=== PATIENT | female | born 1980 | race Caucasian/White ===

== ENCOUNTER → 2020-09-20 | Outpatient (CLI) | payer MEDICARE, MEDICAID, BC ==
--- NOTE | 2020-09-24 00:39 | ECWPNPC ---
PATIENT NAME: NANCY MARS : 1980 GENDER: FEMALE VISIT DATE: 09/20/2020 DISCHARGE DATE: 09/20/20 1148 VISIT LOCKED DATE TIME: PHYSICIAN: ALVERTO ALICEA RESOURCE: ALVERTO ALICEA REASON FOR APPOINTMENT 1. CHRONIC HEADACHE HISTORY OF PRESENT ILLNESS GENERAL: 39-YEAR-OLD FEMALE BEING REFERRED FOR CHRONIC HEADACHES BY [facility] ,[facility], [facility]. REPORTS LONG HISTORY OF MIGRAINE HEADACHE.-HISTORY OF CEREBRAL ANEURYSM REPAIR 2 YEARS AGO. THIS WAS PICKED UP BY MRI OF THE BRAIN DUE TO BLACKOUT EPISODES. CONTINUES WITH BLACKOUT EPISODES. HAS ANOTHER CEREBRAL ANEURYSM THAT THEY ARE FOLLOWING YEARLY. HISTORY OF SEVERE ANXIETY AND IS ON DISABILITY FOR THIS REASON. REPORTS APPROXIMATELY 8 MIGRAINE HEADACHE DAYS IN A 30 DAY TIME FRAME. REPORTS MIGRAINE HEADACHE FOR 5 DAYS DURING HER MENSES EVERY MONTH. FINDS IBUPROFEN 800 MG AND FIORICET HELPFUL. HISTORY OF MULTIPLE MEDICATION INTOLERANCES. HISTORY OF MUSCLE SPASM PAIN IN NECK AND UPPER BACK. HAS ATTENDED PHYSICAL THERAPY IN THE PAST THAT WAS HELPFUL DURING TREATMENT. REVIEWED MRI OF THE BRAIN DONE IN 2019 WHICH WAS BENIGN. BRIEFLY DISCUSSED PROCEDURES WE ARE ABLE TO DO HERE TO INCLUDE TRIGGER POINT INJECTIONS, CERVICAL FACET BLOCKS AND OTHER INTERVENTIONAL TREATMENTS. SHE IS NOT A CANDIDATE FOR BOTOX. PATIENT STATES SHE IS NEEDLE PHOBIC. STATES THAT SHE HAS SEVERE ANXIETY AND WOULD LIKE TO AVOID INJECTIONS IF POSSIBLE. SHE WOULD LIKE TO TRY MEDICATIONS. SHE IS ON MULTIPLE MEDICATIONS CURRENTLY. I DID OFFER TO TRY A FEW MUSCLE RELAXANTS TO SEE IF THEY WILL GIVE HER RELIEF INSTEAD OF CYCLOBENZAPRINE. PATIENT WOULD LIKE TO TRY THIS. - -. FALL RISK SCREENING: SCREENING :NO FALLS REPORTED IN THE LAST YEAR PAIN SCREENING: PATIENT HAS A COMPLAINT OF ACUTE OR CHRONIC PAIN :YES LOCATION OF PAIN:HEAD INTENSITY OF PAIN (SCALE OF 1 TO 10):3 WHAT DOES YOUR PAIN FEEL LIKE:STABBING, THROBBING DURATION:CONTINOUS, CONSTANT, ALL DAY PAIN IS INCREASED BY:OTHERS BEANDING OVER AND LIGHT PAIN IS DECREASED BY:USE OF PAIN MEDICATIONS TYLENOL NURSING NOTE: - - -. PAIN CENTER INTAKE QUESTIONS: DO YOU HAVE A HISTORY OF MRSA? :NO DO YOU TAKE A BLOOD THINNERS? :YES TYLENOL, IBUPROPHEN DO YOU HAVE ANY BLEEDING DISORDERS? :NO ANY NEW NUMBNESS OR WEAKNESS IN YOUR LEGS OR ARMS? :NO ANY PACEMAKER,DEFIBRILLATOR, OR DORSAL COLUMN STIMULATOR? :NO DO YOU HAVE ANY RASHES OR OPEN SORES? :NO ARE YOU ALLERGIC TO IV DYE? :NO ARE YOU DIABETIC? :NO ANY NEW PROBLEMS WITH YOUR MEDICATIONS? :NO HAVE YOU RECEIVED A VACCINE IN THE PAST 30 DAYS? :NO DO YOU PLAN TO RECEIVE A VACCINE IN THE NEXT 21 DAYS? :NO DO YOU NEED ANY PRESCRIPTION? :NO DO YOU TAKE ANY IMMUNOSUPPRESSIVE MEDICATIONS? :NO CURRENT MEDICATIONS TAKING ZYPREXA 7.5 MG TABLET 1 TABLET ORALLY ONCE A DAY TAKING MELATONIN 10 MG TABLET 1 CAPSULE AT BEDTIME NEEDED ORALLY ONCE A DAY TAKING FREESTYLE LITE TEST - STRIP DIRECTED IN VITRO TAKING LANCETS - MISCELLANEOUS DIRECTED TAKING GABAPENTIN 100 MG CAPSULE 1 CAPSULE ORALLY TWICE DAILY TAKING ASPIRIN 81 MG TABLET DELAYED RELEASE 1 TABLET ORALLY ONCE A DAY TAKING ZYRTEC ALLERGY 10 MG TABLET 1 TABLET ORALLY ONCE A DAY TAKING SYMBICORT 80-4.5 MCG/ACT AEROSOL 2 PUFFS INHALATION ONCE A DAY TAKING IMITREX 25 MG TABLET 1 TABLET AT LEAST 2 HOURS BETWEEN DOSES NEEDED ORALLY TWICE A DAY TAKING FLEXERIL 10 MG TABLET 1 TABLET AT BEDTIME NEEDED ORALLY THREE TIMES DAILY NEEDED TAKING VENTOLIN HFA 108 (90 BASE) MCG/ACT AEROSOL SOLUTION 1 PUFF NEEDED INHALATION EVERY 4 HRS TAKING SIMVASTATIN 10 MG TABLET 1 TABLET IN THE EVENING ORALLY ONCE A DAY TAKING LISINOPRIL 5 MG TABLET 1 TABLET ORALLY ONCE A DAY TAKING TOPIRAMATE 25 MG TABLET 1 TABLET ORALLY ONCE A DAY TAKING BENTYL 20 MG TABLET 1 TABLET ORALLY FOUR TIMES DAILY NEEDED TAKING MIRTAZAPINE 45 MG TABLET 1 TABLET AT BEDTIME ORALLY ONCE A DAY TAKING OLANZAPINE 10 MG TABLET 1 TABLET ORALLY ONCE A DAY TAKING CLONAZEPAM 0.5 MG TABLET 1 TABLET AT BEDTIME ORALLY ONCE A DAY TAKING CLONAZEPAM 1 MG TABLET 1 TABLET ORALLY ONCE A DAY TAKING OMEPRAZOLE 40 MG CAPSULE DELAYED RELEASE 1 CAPSULE 30 MINUTES BEFORE MORNING MEAL ORALLY ONCE A DAY TAKING DOK 100 MG CAPSULE 1 CAPSULE NEEDED ORALLY ONCE A DAY TAKING ZINC 50 MG TABLET 1 TABLET ORALLY ONCE A DAY TAKING PROMETHAZINE HCL 25 MG/ML SOLUTION 1 ML NEEDED INJECTION EVERY 6 HRS TAKING ALBUTEROL 1 TAB ORAL TAKING SYMBICORT 80-4.5 MCG/ACT AEROSOL 2 PUFFS INHALATION ONCE A DAY TAKING BENTYL 20 MG TABLET DIRECTED ORALLY TAKING TYLENOL 1 TAB ORAL TAKING IBUPROFEN 1 TAB ORAL NOT-TAKING REMERON SOLTAB 45 MG TABLET DISINTEGRATING 1 TABLET ON THE TONGUE AND ALLOW TO DISSOLVE AT BEDTIME ORALLY ONCE A DAY NOT-TAKING VITAMIN C 1000 MG TABLET 1 TABLET ORALLY ONCE A DAY NOT-TAKING CYCLOBENZAPRINE HCL 10 MG TABLET 1 TABLET AT BEDTIME NEEDED ORALLY THREE TIMES DAILY NEEDED NOT-TAKING FERROUS SULFATE 325 (65 FE) MG TABLET 1 TABLET ORALLY ONCE A DAY NOT-TAKING DULCOLAX 5 MG TABLET DELAYED RELEASE 1 TABLET NEEDED ORALLY ONCE A DAY NOT-TAKING DULCOLAX 10 MG SUPPOSITORY 1 SUPPOSITORY NEEDED RECTAL ONCE A DAY NOT-TAKING DSS 100 PLUS 30-100 MG CAPSULE 2 CAPSULE ORALLY THREE TIMES DAILY NEEDED NOT-TAKING FLEXERIL 10 MG 30 10 MG TABLETS ONE TABLET ORALLY EVERY 8 HOURS PRN PAIN NOT-TAKING LISINOPRIL 5 MG TABLET 1 TABLET ORALLY ONCE A DAY UNKNOWN OMEPRAZOLE 40 MG CAPSULE DELAYED RELEASE 1 CAPSULE ORALLY ONCE A DAY UNKNOWN DOCQLACE 100 MG CAPSULE 1 CAPSULE NEEDED ORALLY ONCE A DAY UNKNOWN XANAX XR 0.5 MG TABLET EXTENDED RELEASE 24 HOUR 1 TABLET ORALLY ONCE A DAY PRN UNKNOWN CLONAZEPAM 0.5 MG TABLET 1 TABLET AT BEDTIME ORALLY BID UNKNOWN BENTYL 20 MG TABLET 1 TABLET ORALLY FOUR TIMES A DAY UNKNOWN CIPRO 500 MG TABLET 1 TABLET ORALLY EVERY 12 HRS UNKNOWN PROMETHAZINE HCL 25 MG TABLET 1 TABLET AT BEDTIME ORALLY PRN UNKNOWN ACETAMINOPHEN 325 MG TABLET 1 TABLET NEEDED ORALLY EVERY 6 HRS PRN UNKNOWN ALBUTEROL SULFATE HFA 108 (90 BASE) MCG/ACT AEROSOL SOLUTION 2 PUFFS NEEDED INHALATION EVERY 4 HRS MEDICATION LIST REVIEWED AND RECONCILED WITH THE PATIENT PAST MEDICAL HISTORY UTI HYPOGLYCEMIA- DIET CONTROLED ACID REFLUX ASTHMA NECK PAIN ANXIETY MIGRAINE PIGMENTARY RETINAL DYSTROPHY DYSTHYMIC DISORDER IRRITABLE BOWEL SYNDROME HPV DYSLIPIDEMIA NICOTINE DEPENDENCE ACUTE SUPPURATIVE OTITIS MEDIA OF BOTH EARS WITHOUT SPONTANEOUS RUPTURE OF TYMPANIC MEMBRANES, RECURRENCE NOT SPECIFIED RIGHT MAXILLARY SINUSITIS ACUTE MAXILLARY SINUSITIS REACTIVE HYPOGYCEMIA CANCER HYPERTENSION OSTEOPOROSIS LOW BACK PAIN POST OPERATIVE NAUSEA AND VOMITING ALLERGIES REGLAN: FLIP OUT - SIDE EFFECTS LATEX: RASH/ITCHING - ALLERGY AMITRIPTYLINE HCL: HALLICUATIONS - SIDE EFFECTS PREDNISONE: SUICIDAL - SIDE EFFECTS IMITREX: VOMITING - SIDE EFFECTS COMPAZINE ZOFRAN CODEINE SULFATE VICODIN ULTRACET NICOTINE PATCH HEPATITIS VACCINATION LATEX (FOR ALLERGY USE ONLY) SURGICAL HISTORY LEEP 02/2007 [facility] BRAIN-ANEURYSM COIL/MESH 02/13/2019 TUBAL LIGATION 12/2016 FAMILY HISTORY FATHER: ALIVE, NO KNOWN MEDICAL PROBLEMS MOTHER: ALIVE, DEPRESSION, ANXIETY, MIGRAINE SIBLINGS: 1)SISTER- ASHMA 2) HEP? 3) CANCER,UTERINE 3 SISTER(S) . 1 SON(S) , 3 DAUGHTER(S) . DENIES ANY FAMILY HX OF BLADDER OR KIDNEY CA. SOCIAL HISTORY GENERAL: TOBACCO USE ARE YOU A:FORMER SMOKER HOW LONG HAS IT BEEN SINCE YOU LAST SMOKED?1-5 YEARS LATEX QUESTIONNAIRE LATEX ALLERGY : HAVE YOU EVER DEVELOPED ANY TYPE OF REACTION AFTER HANDLING LATEX PRODUCTS SUCH RUBBER GLOVES, CONDOMS, DIAPHRAGMS, BALLOONS, SOCKS, OR UNDERWEAR?YES - PLEASE INDICATE :RUBBER GLOVES, CONDOMS LATEX ALLERGY : HAVE YOU EVER DEVELOPED ANY TYPE OF REACTION DURING OR AFTER DENTAL APPOINTMENT, VAGINAL/RECTAL EXAMINATION, SURGICAL PROCEDURE, OR ANY OTHER EXPOSURE?YES - PLEASE INDICATE :DENTAL PROCEDURE LATEX RISK : HAVE YOU EVER HAD ANY DIFFICULTY BREATHING OR HIVES AFTER EATING OR HANDLING ANY FRUITS, OR VEGETABLES; SUCH KIWI, BANANAS, STONE FRUITS, OR CHESTNUTSNO LATEX RISK : DO YOU HAVE A PREVIOUS PERSONAL HISTORY OF MORE THAN NINE SURGERIES, SPINA BIFIDA, OR REPEATED CATHERIZATIONS? NO LATEX RISK : ARE YOU FREQUENTLY EXPOSED TO LATEX PRODUCTS IN YOUR OCCUPATION?NO DATE ASKED : 09/20/2020 ALCOHOL USE: YES ONCE A YEAR. ALCOHOL SCREENING POINTS: 1, INTERPRETATION: NEGATIVE. RECREATIONAL DRUG USE DRUG USE?NO CAFFEINE 1-2/DAY. SEXUAL HX HAD SEX IN THE LAST 12 MONTHS (VAGINAL, ORAL, OR ANAL)?: YES, WITH: MEN ONLY, HAVE YOU EVER HAD AN STD?: YES, OTHER?: YES, LMP:: 10/28/2012. 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 MARITAL STATUS: SINGLE. HOSPITALIZATION/MAJOR DIAGNOSTIC PROCEDURE UTI 2006 CHILD REVIEW OF SYSTEMS CONSTITUTIONAL: ANY RECENT FEVER NO . CHILLS NO . WEIGHT CHANGE OF UNKNOWN REASONS NO . GASTROENTEROLOGY: NEW UNEXPLAINABLE CHANGES IN BOWEL CONTROL NO . CONSTIPATION NO . GENITOURINARY: ANY NEW CHANGE IN BLADDER CONTROL? NO . NEUROLOGY: NEW ONSET DIZZINESS OR NEUROLOGICAL CHANGES NOT MENTIONED NO . NEW NUMBNESS OR PAIN PATTERNS NOT MENTIONED AND PERTINENT TO TODAY'S VISIT NO . CARDIOLOGY: NEW CHEST PRESSURE NO . NEW CHEST PAIN NO . RESPIRATORY: UNEXPLAINABLE COUGH NO . NEW SHORTNESS OF BREATH NO . VITAL SIGNS WT 140 LBS, HT 5'1", BMI 26.45 INDEX, BP 113/62 MM HG, HR 86 /MIN, RR 18 /MIN, TEMP 97.8 F, OXYGEN SAT % 96, SAFE IN ENV? (Y/N) YEST.QUIRINO ROMEO. EXAMINATION GENERAL EXAMINATION: GENERAL AWAKE,ALERT ,PLEASANT . PSYCH AFFECT NORMAL . NECK: TRACHEA MIDLINE. NO CERVICAL OR SUPRACLAVICULAR LYMPHADENOPATHY NOTED. LUNGS: LUNG DONOHUE ARE CLEAR TO AUSCULTATION BILATERALLY. GOOD MOVEMENT OF AIR . HEART: S1, S2 IN A REGULAR RATE AND RHYTHM. NO SIGNIFICANT MURMURS, RUBS OR GALLOPS NOTED . ABDOMEN: SOFT/NONTENDER. MUSCULOSKELETAL: MUSCLE STRENGTH TESTING 5/5 BILATERAL UPPER/LOWER EXTREMITIES. LUMBAR: PALPATION: NEGATIVE FOR PAIN OVER L/S SPINE.. CERVICAL:NEGATIVE FOR PAIN WITH PALPATION OF CERVICAL SPINE. NEGATIVE FOR PAIN WITH PALPATION OF CERVICAL PARASPINALS. TRAPEZIUS AND SCALENE MUSCLES OF THE NECK APPEAR TO BE TIGHT AND SLIGHTLY TENDER TO TOUCH BILATERALLY. SKIN: NO RASH OR SKIN LESIONS. NEUROLOGIC EXAM: CN'S NORMAL TESTED , DTRS 1-2+ IN ALL 4 EXTREMITIES. DIAGNOSTIC TESTS REVIEWEDMRI BRAIN-2019-. ASSESSMENTS CHRONIC MIGRAINE WITHOUT AURA WITHOUT STATUS MIGRAINOSUS, NOT INTRACTABLE - G43.709 (PRIMARY) TREATMENT CHRONIC MIGRAINE WITHOUT AURA WITHOUT STATUS MIGRAINOSUS, NOT INTRACTABLE STOP FLEXERIL TABLET, 10 MG, 1 TABLET AT BEDTIME NEEDED, ORALLY, THREE TIMES DAILY NEEDED START TIZANIDINE HCL TABLET, 2 MG, 1 TABLET NEEDED, ORALLY, TWICE A DAY IF NEEDED FOR SEVERE MIGRAINE, 30 DAYS, 30, REFILLS 1 NOTES: PRINTED INFORMATION ON NEW MEDICATION FOR PATIENT KATHY ORMEO . PROCEDURE CODES FA211 ESTABILISHED PATIENT [facility] FACILITY CHARGE DISPOSITION & COMMUNICATION FOLLOW UP 3 MONTHS (REASON: MEDICATION MANAGEMENT/CHRONIC HEADACHE/TIZANIDINE STARTED) ELECTRONICALLY SIGNED BY CLINT CARDOZO ON 09/23/2020 AT 10:44 AM EST DISCLAIMER : THIS IS A VISIT SUMMARY EXTRACTED FROM THE [employer] CHART. IT IS NOT A COPY OF THE [employer] PROGRESS NOTE. MTDD
== END ==
LOC: M PAIN 10:15
PROVIDERS: ATTEND Nurse Practitioner Family
DX: G43.709 Chronic migraine without aura, not intractable, without status migrainosus (principal); K21.9 Gastro-esophageal reflux disease without esophagitis; J45.909 Unspecified asthma, uncomplicated; M54.2 Cervicalgia; F34.1 Dysthymic disorder; E78.5 Hyperlipidemia, unspecified; I10 Essential (primary) hypertension; Z79.82 Long term (current) use of aspirin; Z79.899 Other long term (current) drug therapy; Z87.891 Personal history of nicotine dependence; Z88.5 Allergy status to narcotic agent; Z88.8 Allergy status to other drugs, medicaments and biological substances; Z91.040 Latex allergy status

== ENCOUNTER → 2020-12-16 | Outpatient (CLI) | payer MEDICARE, MEDICAID, BC ==
--- NOTE | 2020-12-31 05:57 | ECWPNPC ---
PATIENT NAME: NANCY MARS : 1980 GENDER: FEMALE VISIT DATE: 12/16/2020 DISCHARGE DATE: 12/16/20 1109 VISIT LOCKED DATE TIME: PHYSICIAN: ALVERTO ALICEA RESOURCE: ALVERTO ALICEA REASON FOR APPOINTMENT 1. MEDICATION MANAGEMENT/CHRONIC HEADACHE/TIZANIDINE STARTED HISTORY OF PRESENT ILLNESS GENERAL: HERE FOR F/U OF CHRONIC HEADACHE WITH HISTORY OF HEADACHES ASSOCIATED WITH CEREBRAL ANURISM /REPAIR.STARTED ON TIZANIDINE 2MG AT INITIAL VISIT.DOING VERY WELL.TAKING A 1/2 TO 1 TAB AT NOIGHT AND IS HAVING IMPROVED SLEEP AND LESS FREQUENT HEADACHES.DENIES SIDE EFFECTS. -. FALL RISK SCREENING: SCREENING : NO FALLS REPORTED IN THE LAST YEAR. PAIN SCREENING: PATIENT HAS A COMPLAINT OF ACUTE OR CHRONIC PAIN :YES LOCATION OF PAIN:HEAD, NECK, BOTH SHOULDERS INTENSITY OF PAIN (SCALE OF 1 TO 10):5 WHAT DOES YOUR PAIN FEEL LIKE:SHARP, STABBING DURATION:CONTINOUS, CONSTANT, ALL DAY PAIN IS INCREASED BY:ACTIVITIES, OTHERS LAYING DOWN FOR A LONG TIME PAIN IS DECREASED BY:USE OF PAIN MEDICATIONS NURSING NOTE: -. PAIN CENTER INTAKE QUESTIONS: DO YOU HAVE A HISTORY OF MRSA? :NO DO YOU TAKE A BLOOD THINNERS? :YES TYLENOL, IBUPROPHEN DO YOU HAVE ANY BLEEDING DISORDERS? :NO ANY NEW NUMBNESS OR WEAKNESS IN YOUR LEGS OR ARMS? :YES LEFT SHOULDER AND GOING DOWN THE BACK ANY PACEMAKER,DEFIBRILLATOR, OR DORSAL COLUMN STIMULATOR? :NO DO YOU HAVE ANY RASHES OR OPEN SORES? :NO ARE YOU ALLERGIC TO IV DYE? :NO ARE YOU DIABETIC? :NO ANY NEW PROBLEMS WITH YOUR MEDICATIONS? :NO HAVE YOU RECEIVED A VACCINE IN THE PAST 30 DAYS? :YES BERE BLACKBURN 12/06/2020 DO YOU PLAN TO RECEIVE A VACCINE IN THE NEXT 21 DAYS? :NO DO YOU NEED ANY PRESCRIPTION? :YES TIZANDINE DO YOU TAKE ANY IMMUNOSUPPRESSIVE MEDICATIONS? :NO CURRENT MEDICATIONS TAKING ZYPREXA 7.5 MG TABLET 1 TABLET ORALLY ONCE A DAY TAKING MELATONIN 10 MG TABLET 1 CAPSULE AT BEDTIME NEEDED ORALLY ONCE A DAY TAKING FREESTYLE LITE TEST - STRIP DIRECTED IN VITRO TAKING LANCETS - MISCELLANEOUS DIRECTED TAKING GABAPENTIN 100 MG CAPSULE 1 CAPSULE ORALLY TWICE DAILY TAKING ASPIRIN 81 MG TABLET DELAYED RELEASE 1 TABLET ORALLY ONCE A DAY TAKING ZYRTEC ALLERGY 10 MG TABLET 1 TABLET ORALLY ONCE A DAY TAKING SYMBICORT 80-4.5 MCG/ACT AEROSOL 2 PUFFS INHALATION ONCE A DAY TAKING VENTOLIN HFA 108 (90 BASE) MCG/ACT AEROSOL SOLUTION 1 PUFF NEEDED INHALATION EVERY 4 HRS TAKING SIMVASTATIN 10 MG TABLET 1 TABLET IN THE EVENING ORALLY ONCE A DAY TAKING LISINOPRIL 5 MG TABLET 1 TABLET ORALLY ONCE A DAY TAKING BENTYL 20 MG TABLET 1 TABLET ORALLY FOUR TIMES DAILY NEEDED TAKING MIRTAZAPINE 45 MG TABLET 1 TABLET AT BEDTIME ORALLY ONCE A DAY TAKING OLANZAPINE 10 MG TABLET 1 TABLET ORALLY ONCE A DAY TAKING CLONAZEPAM 0.5 MG TABLET 1 TABLET AT BEDTIME ORALLY ONCE A DAY TAKING CLONAZEPAM 1 MG TABLET 1 TABLET ORALLY ONCE A DAY TAKING OMEPRAZOLE 40 MG CAPSULE DELAYED RELEASE 1 CAPSULE 30 MINUTES BEFORE MORNING MEAL ORALLY ONCE A DAY TAKING DOK 100 MG CAPSULE 1 CAPSULE NEEDED ORALLY ONCE A DAY TAKING ZINC 50 MG TABLET 1 TABLET ORALLY ONCE A DAY TAKING PROMETHAZINE HCL 25 MG/ML SOLUTION 1 ML NEEDED INJECTION EVERY 6 HRS TAKING ALBUTEROL 1 TAB ORAL INHALER TAKING TYLENOL 1 TAB ORAL TAKING IBUPROFEN 1 TAB ORAL TAKING TIZANIDINE HCL 2 MG TABLET 1 TABLET NEEDED ORALLY TWICE A DAY IF NEEDED FOR SEVERE MIGRAINE NOT-TAKING IMITREX 25 MG TABLET 1 TABLET AT LEAST 2 HOURS BETWEEN DOSES NEEDED ORALLY TWICE A DAY NOT-TAKING TOPIRAMATE 25 MG TABLET 1 TABLET ORALLY ONCE A DAY NOT-TAKING SYMBICORT 80-4.5 MCG/ACT AEROSOL 2 PUFFS INHALATION ONCE A DAY NOT-TAKING BENTYL 20 MG TABLET DIRECTED ORALLY NOT-TAKING REMERON SOLTAB 45 MG TABLET DISINTEGRATING 1 TABLET ON THE TONGUE AND ALLOW TO DISSOLVE AT BEDTIME ORALLY ONCE A DAY NOT-TAKING VITAMIN C 1000 MG TABLET 1 TABLET ORALLY ONCE A DAY NOT-TAKING CYCLOBENZAPRINE HCL 10 MG TABLET 1 TABLET AT BEDTIME NEEDED ORALLY THREE TIMES DAILY NEEDED NOT-TAKING FERROUS SULFATE 325 (65 FE) MG TABLET 1 TABLET ORALLY ONCE A DAY NOT-TAKING DULCOLAX 5 MG TABLET DELAYED RELEASE 1 TABLET NEEDED ORALLY ONCE A DAY NOT-TAKING DULCOLAX 10 MG SUPPOSITORY 1 SUPPOSITORY NEEDED RECTAL ONCE A DAY NOT-TAKING DSS 100 PLUS 30-100 MG CAPSULE 2 CAPSULE ORALLY THREE TIMES DAILY NEEDED NOT-TAKING FLEXERIL 10 MG 30 10 MG TABLETS ONE TABLET ORALLY EVERY 8 HOURS PRN PAIN NOT-TAKING LISINOPRIL 5 MG TABLET 1 TABLET ORALLY ONCE A DAY NOT-TAKING OMEPRAZOLE 40 MG CAPSULE DELAYED RELEASE 1 CAPSULE ORALLY ONCE A DAY NOT-TAKING DOCQLACE 100 MG CAPSULE 1 CAPSULE NEEDED ORALLY ONCE A DAY NOT-TAKING XANAX XR 0.5 MG TABLET EXTENDED RELEASE 24 HOUR 1 TABLET ORALLY ONCE A DAY PRN NOT-TAKING CLONAZEPAM 0.5 MG TABLET 1 TABLET AT BEDTIME ORALLY BID NOT-TAKING BENTYL 20 MG TABLET 1 TABLET ORALLY FOUR TIMES A DAY NOT-TAKING CIPRO 500 MG TABLET 1 TABLET ORALLY EVERY 12 HRS NOT-TAKING PROMETHAZINE HCL 25 MG TABLET 1 TABLET AT BEDTIME ORALLY PRN NOT-TAKING ACETAMINOPHEN 325 MG TABLET 1 TABLET NEEDED ORALLY EVERY 6 HRS PRN NOT-TAKING ALBUTEROL SULFATE HFA 108 (90 BASE) MCG/ACT AEROSOL SOLUTION 2 PUFFS NEEDED INHALATION EVERY 4 HRS MEDICATION LIST REVIEWED AND RECONCILED WITH THE PATIENT PAST MEDICAL HISTORY UTI HYPOGLYCEMIA- DIET CONTROLED ACID REFLUX ASTHMA NECK PAIN ANXIETY MIGRAINE PIGMENTARY RETINAL DYSTROPHY DYSTHYMIC DISORDER IRRITABLE BOWEL SYNDROME HPV DYSLIPIDEMIA NICOTINE DEPENDENCE ACUTE SUPPURATIVE OTITIS MEDIA OF BOTH EARS WITHOUT SPONTANEOUS RUPTURE OF TYMPANIC MEMBRANES, RECURRENCE NOT SPECIFIED RIGHT MAXILLARY SINUSITIS ACUTE MAXILLARY SINUSITIS REACTIVE HYPOGYCEMIA CANCER HYPERTENSION OSTEOPOROSIS LOW BACK PAIN POST OPERATIVE NAUSEA AND VOMITING ALLERGIES REGLAN: FLIP OUT - SIDE EFFECTS LATEX: RASH/ITCHING - ALLERGY AMITRIPTYLINE HCL: HALLICUATIONS - SIDE EFFECTS PREDNISONE: SUICIDAL - SIDE EFFECTS IMITREX: VOMITING - SIDE EFFECTS COMPAZINE: FLIP-OUT - SIDE EFFECTS ZOFRAN: HEADACHE - SIDE EFFECTS CODEINE SULFATE: VOMITING - SIDE EFFECTS VICODIN: NAUSEA/VOMITING - SIDE EFFECTS ULTRACET: HEADACHE - SIDE EFFECTS NICOTINE PATCH: RASH, SWELLOWING - SIDE EFFECTS HEPATITIS VACCINATION: SICK - SIDE EFFECTS LATEX (FOR ALLERGY USE ONLY): SWELLOWING SURGICAL HISTORY LEEP 02/2007 [facility] BRAIN-ANEURYSM COIL/MESH 02/13/2019 TUBAL LIGATION 12/2016 SOCIAL HISTORY GENERAL: TOBACCO USE ARE YOU A:FORMER SMOKER HOW LONG HAS IT BEEN SINCE YOU LAST SMOKED?1-5 YEARS LATEX QUESTIONNAIRE LATEX ALLERGY : HAVE YOU EVER DEVELOPED ANY TYPE OF REACTION AFTER HANDLING LATEX PRODUCTS SUCH RUBBER GLOVES, CONDOMS, DIAPHRAGMS, BALLOONS, SOCKS, OR UNDERWEAR?YES - PLEASE INDICATE :RUBBER GLOVES, CONDOMS LATEX ALLERGY : HAVE YOU EVER DEVELOPED ANY TYPE OF REACTION DURING OR AFTER DENTAL APPOINTMENT, VAGINAL/RECTAL EXAMINATION, SURGICAL PROCEDURE, OR ANY OTHER EXPOSURE?YES - PLEASE INDICATE :DENTAL PROCEDURE LATEX RISK : HAVE YOU EVER HAD ANY DIFFICULTY BREATHING OR HIVES AFTER EATING OR HANDLING ANY FRUITS, OR VEGETABLES; SUCH KIWI, BANANAS, STONE FRUITS, OR CHESTNUTSNO LATEX RISK : DO YOU HAVE A PREVIOUS PERSONAL HISTORY OF MORE THAN NINE SURGERIES, SPINA BIFIDA, OR REPEATED CATHERIZATIONS? NO LATEX RISK : ARE YOU FREQUENTLY EXPOSED TO LATEX PRODUCTS IN YOUR OCCUPATION?NO DATE ASKED : 12/16/2020 ALCOHOL USE: YES ONCE A YEAR. ALCOHOL SCREENING POINTS: 1, INTERPRETATION: NEGATIVE. RECREATIONAL DRUG USE DRUG USE?NO CAFFEINE 1-2/DAY. SEXUAL HX HAD SEX IN THE LAST 12 MONTHS (VAGINAL, ORAL, OR ANAL)?: YES, WITH: MEN ONLY, HAVE YOU EVER HAD AN STD?: YES, OTHER?: YES, LMP:: 10/28/2012. 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 MARITAL STATUS: SINGLE. HOSPITALIZATION/MAJOR DIAGNOSTIC PROCEDURE UTI 2006 CHILD REVIEW OF SYSTEMS CONSTITUTIONAL: ANY RECENT FEVER NO . CHILLS NO . WEIGHT CHANGE OF UNKNOWN REASONS NO . GASTROENTEROLOGY: NEW UNEXPLAINABLE CHANGES IN BOWEL CONTROL NO . CONSTIPATION NO . GENITOURINARY: ANY NEW CHANGE IN BLADDER CONTROL? NO . NEUROLOGY: NEW ONSET DIZZINESS OR NEUROLOGICAL CHANGES NOT MENTIONED NO . NEW NUMBNESS OR PAIN PATTERNS NOT MENTIONED AND PERTINENT TO TODAY'S VISIT NO . CARDIOLOGY: NEW CHEST PRESSURE NO . PATIENT DENIES NO . RESPIRATORY: UNEXPLAINABLE COUGH NO . NEW SHORTNESS OF BREATH NO . VITAL SIGNS WT 140.2 LBS, HT 5'1", BMI 26.49 INDEX, BP 137/91 MM HG, HR 81 /MIN, RR 18 /MIN, TEMP 97.6 F, OXYGEN SAT % 96%, SAFE IN ENV? (Y/N) YES, NA INITIALS OK 10:18T.QUIRINO ROMEO. EXAMINATION GENERAL EXAMINATION: GENERALAWAKE,ALERT ,PLEASANT . PSYCHAFFECT NORMAL . LUNGS:LUNG DONOHUE ARE CLEAR TO AUSCULTATION BILATERALLY. GOOD MOVEMENT OF AIR . HEART:S1, S2 IN A REGULAR RATE AND RHYTHM. NO SIGNIFICANT MURMURS, RUBS OR GALLOPS NOTED . ASSESSMENTS CHRONIC MIGRAINE WITHOUT AURA WITHOUT STATUS MIGRAINOSUS, NOT INTRACTABLE - G43.709 (PRIMARY) TREATMENT CHRONIC MIGRAINE WITHOUT AURA WITHOUT STATUS MIGRAINOSUS, NOT INTRACTABLE REFILL TIZANIDINE HCL TABLET, 2 MG, 1 TABLET NEEDED, ORALLY, TWICE A DAY IF NEEDED FOR SEVERE MIGRAINE, 30 DAYS, 30, REFILLS 2 PROCEDURE CODES FA211 ESTABILISHED PATIENT [facility] CHARGE DISPOSITION & COMMUNICATION FOLLOW UP 3 MONTHS (REASON: MED MGMNT/HEADACHE POST ANUERISM,DOING WELL W TIZANIDINE) ELECTRONICALLY SIGNED BY CLINT CARDOZO ON 12/30/2020 AT 02:00 PM EDT DISCLAIMER : THIS IS A VISIT SUMMARY EXTRACTED FROM THE [employer] CHART. IT IS NOT A COPY OF THE [employer] PROGRESS NOTE. ASHLEIGH
== END ==
LOC: M PAIN 10:15
PROVIDERS: ATTEND Nurse Practitioner Family
DX: G43.709 Chronic migraine without aura, not intractable, without status migrainosus (principal); K21.9 Gastro-esophageal reflux disease without esophagitis; J45.909 Unspecified asthma, uncomplicated; M54.2 Cervicalgia; F34.1 Dysthymic disorder; K58.9 Irritable bowel syndrome, unspecified; E78.5 Hyperlipidemia, unspecified; I10 Essential (primary) hypertension; M81.0 Age-related osteoporosis without current pathological fracture; M54.5 Low back pain; Z87.891 Personal history of nicotine dependence; Z79.82 Long term (current) use of aspirin; Z79.899 Other long term (current) drug therapy; Z88.5 Allergy status to narcotic agent; Z88.8 Allergy status to other drugs, medicaments and biological substances; Z91.040 Latex allergy status

== ENCOUNTER → 2021-03-17 | Outpatient (CLI) | payer MEDICARE, MEDICAID, BC ==
--- NOTE | 2021-03-19 03:23 | ECWPNPC ---
PATIENT NAME: NANCY MARS : 1980 GENDER: FEMALE VISIT DATE: 03/17/2021 DISCHARGE DATE: 03/17/21 1124 VISIT LOCKED DATE TIME: PHYSICIAN: ALVERTO ALICEA RESOURCE: ALVERTO ALICEA REASON FOR APPOINTMENT 1. MED MGMNT/HEADACHE POST ANUERISM,DOING WELL W TIZANIDINE HISTORY OF PRESENT ILLNESS DEPRESSION SCREENING: PHQ-9 LITTLE INTEREST OR PLEASURE IN DOING THINGSNEARLY EVERY DAY FEELING DOWN, DEPRESSED, OR HOPELESSNOT AT ALL TROUBLE FALLING OR STAYING ASLEEP, OR SLEEPING TOO MUCHNEARLY EVERY DAY FEELING TIRED OR HAVING LITTLE ENERGYNEARLY EVERY DAY POOR APPETITE OR OVEREATING NEARLY EVERY DAY FEELING BAD ABOUT YOURSELF-OR THAT YOU ARE A FAILURE OR HAVE LET YOURSELF OR YOUR FAMILY DOWN NOT AT ALL TROUBLE CONCENTRATING ON THINGS, SUCH READING THE NEWSPAPER OR WATCHING TELEVISION NEARLY EVERY DAY MOVING OR SPEAKING SO SLOWLY THAT OTHER PEOPLE COULD HAVE NOTICED. OR THE OPPOSITE- BEING SO FIDGETY OR RESTLESS THAT YOU HAVE BEEN MOVING AROUND A LOT MORE THAN USUALSEVERAL DAYS THOUGHTS THAT YOU WOULD BE BETTER OFF , OR OF HURTING YOURSELF IN SOME WAY?NOT AT ALL TOTAL SCORE:16 INTERPRETATIONMODERATELY SEVERE DEPRESSION PHQ-2 (2015 EDITION) LITTLE INTEREST OR PLEASURE IN DOING THINGS?NEARLY EVERY DAY FEELING DOWN, DEPRESSED, OR HOPELESS?NOT AT ALL TOTAL SCORE3 GENERAL: HERE FOR FOLLOW-UP AND MEDICATION MANAGEMENT FOR CHRONIC HEADACHES ASSOCIATED WITH CEREBRAL ANEURYSM. CONTINUES TO DO WELL ON TIZANIDINE 2 MG TABLET 1 AT BEDTIME. DENIES ADVERSE SIDE EFFECTS. REPORTING LESS HEADACHE DAYS PER MONTH. -. FALL RISK SCREENING: SCREENING : NO FALLS REPORTED IN THE LAST YEAR. PAIN SCREENING: PATIENT HAS A COMPLAINT OF ACUTE OR CHRONIC PAIN :YES LOCATION OF PAIN:HEAD, NECK INTENSITY OF PAIN (SCALE OF 1 TO 10):3 WHAT DOES YOUR PAIN FEEL LIKE:CONTINOUS, THROBBING DURATION:CONTINOUS, CONSTANT, ALL DAY PAIN IS INCREASED BY:OTHERS EVERY TIME SHE START HER PERIOD PAIN IS DECREASED BY:USE OF PAIN MEDICATIONS NURSING NOTE: -. PAIN CENTER INTAKE QUESTIONS: DO YOU HAVE A HISTORY OF MRSA? :NO DO YOU TAKE A BLOOD THINNERS? :YES TYLENOL, IBUPROPHEN, ASPIRIN 81 MG DO YOU HAVE ANY BLEEDING DISORDERS? :NO ANY NEW NUMBNESS OR WEAKNESS IN YOUR LEGS OR ARMS? :YES LEFT SHOULDER AND GOING DOWN THE BACK, NUMBES IN BILATERAL LEGS ANY PACEMAKER,DEFIBRILLATOR, OR DORSAL COLUMN STIMULATOR? :NO DO YOU HAVE ANY RASHES OR OPEN SORES? :NO ARE YOU ALLERGIC TO IV DYE? :NO ARE YOU DIABETIC? :NO ANY NEW PROBLEMS WITH YOUR MEDICATIONS? :NO HAVE YOU RECEIVED A VACCINE IN THE PAST 30 DAYS? :NO DO YOU PLAN TO RECEIVE A VACCINE IN THE NEXT 21 DAYS? :NO DO YOU NEED ANY PRESCRIPTION? :YES TIZANDINE DO YOU TAKE ANY IMMUNOSUPPRESSIVE MEDICATIONS? :NO CURRENT MEDICATIONS TAKING ZYPREXA 7.5 MG TABLET 1 TABLET ORALLY ONCE A DAY TAKING MELATONIN 10 MG TABLET 1 CAPSULE AT BEDTIME NEEDED ORALLY ONCE A DAY TAKING FREESTYLE LITE TEST - STRIP DIRECTED IN VITRO TAKING LANCETS - MISCELLANEOUS DIRECTED TAKING GABAPENTIN 100 MG CAPSULE 1 CAPSULE ORALLY TWICE DAILY TAKING ASPIRIN 81 MG TABLET DELAYED RELEASE 1 TABLET ORALLY ONCE A DAY TAKING ZYRTEC ALLERGY 10 MG TABLET 1 TABLET ORALLY ONCE A DAY TAKING SYMBICORT 80-4.5 MCG/ACT AEROSOL 2 PUFFS INHALATION ONCE A DAY TAKING VENTOLIN HFA 108 (90 BASE) MCG/ACT AEROSOL SOLUTION 1 PUFF NEEDED INHALATION EVERY 4 HRS TAKING SIMVASTATIN 10 MG TABLET 1 TABLET IN THE EVENING ORALLY ONCE A DAY TAKING LISINOPRIL 5 MG TABLET 1 TABLET ORALLY ONCE A DAY TAKING BENTYL 20 MG TABLET 1 TABLET ORALLY FOUR TIMES DAILY NEEDED TAKING MIRTAZAPINE 45 MG TABLET 1 TABLET AT BEDTIME ORALLY ONCE A DAY TAKING OLANZAPINE 10 MG TABLET 1 TABLET ORALLY ONCE A DAY TAKING CLONAZEPAM 0.5 MG TABLET 1 TABLET AT BEDTIME ORALLY ONCE A DAY TAKING CLONAZEPAM 1 MG TABLET 1 TABLET ORALLY ONCE A DAY TAKING OMEPRAZOLE 40 MG CAPSULE DELAYED RELEASE 1 CAPSULE 30 MINUTES BEFORE MORNING MEAL ORALLY ONCE A DAY TAKING DOK 100 MG CAPSULE 1 CAPSULE NEEDED ORALLY ONCE A DAY TAKING ZINC 50 MG TABLET 1 TABLET ORALLY ONCE A DAY TAKING PROMETHAZINE HCL 25 MG/ML SOLUTION 1 ML NEEDED INJECTION EVERY 6 HRS TAKING ALBUTEROL 1 TAB ORAL INHALER TAKING TYLENOL 1 TAB ORAL TAKING IBUPROFEN 1 TAB ORAL TAKING TIZANIDINE HCL 2 MG TABLET 1 TABLET NEEDED ORALLY TWICE A DAY IF NEEDED FOR SEVERE MIGRAINE NOT-TAKING ASPIR-LOW 81 MG TABLET DELAYED RELEASE 1 TABLET ORALLY ONCE A DAY NOT-TAKING IMITREX 25 MG TABLET 1 TABLET AT LEAST 2 HOURS BETWEEN DOSES NEEDED ORALLY TWICE A DAY NOT-TAKING TOPIRAMATE 25 MG TABLET 1 TABLET ORALLY ONCE A DAY NOT-TAKING SYMBICORT 80-4.5 MCG/ACT AEROSOL 2 PUFFS INHALATION ONCE A DAY NOT-TAKING BENTYL 20 MG TABLET DIRECTED ORALLY NOT-TAKING REMERON SOLTAB 45 MG TABLET DISINTEGRATING 1 TABLET ON THE TONGUE AND ALLOW TO DISSOLVE AT BEDTIME ORALLY ONCE A DAY NOT-TAKING VITAMIN C 1000 MG TABLET 1 TABLET ORALLY ONCE A DAY NOT-TAKING CYCLOBENZAPRINE HCL 10 MG TABLET 1 TABLET AT BEDTIME NEEDED ORALLY THREE TIMES DAILY NEEDED NOT-TAKING FERROUS SULFATE 325 (65 FE) MG TABLET 1 TABLET ORALLY ONCE A DAY NOT-TAKING DULCOLAX 5 MG TABLET DELAYED RELEASE 1 TABLET NEEDED ORALLY ONCE A DAY NOT-TAKING DULCOLAX 10 MG SUPPOSITORY 1 SUPPOSITORY NEEDED RECTAL ONCE A DAY NOT-TAKING DSS 100 PLUS 30-100 MG CAPSULE 2 CAPSULE ORALLY THREE TIMES DAILY NEEDED NOT-TAKING FLEXERIL 10 MG 30 10 MG TABLETS ONE TABLET ORALLY EVERY 8 HOURS PRN PAIN NOT-TAKING LISINOPRIL 5 MG TABLET 1 TABLET ORALLY ONCE A DAY NOT-TAKING OMEPRAZOLE 40 MG CAPSULE DELAYED RELEASE 1 CAPSULE ORALLY ONCE A DAY NOT-TAKING DOCQLACE 100 MG CAPSULE 1 CAPSULE NEEDED ORALLY ONCE A DAY NOT-TAKING XANAX XR 0.5 MG TABLET EXTENDED RELEASE 24 HOUR 1 TABLET ORALLY ONCE A DAY PRN NOT-TAKING CLONAZEPAM 0.5 MG TABLET 1 TABLET AT BEDTIME ORALLY BID NOT-TAKING BENTYL 20 MG TABLET 1 TABLET ORALLY FOUR TIMES A DAY NOT-TAKING CIPRO 500 MG TABLET 1 TABLET ORALLY EVERY 12 HRS NOT-TAKING PROMETHAZINE HCL 25 MG TABLET 1 TABLET AT BEDTIME ORALLY PRN NOT-TAKING ACETAMINOPHEN 325 MG TABLET 1 TABLET NEEDED ORALLY EVERY 6 HRS PRN NOT-TAKING ALBUTEROL SULFATE HFA 108 (90 BASE) MCG/ACT AEROSOL SOLUTION 2 PUFFS NEEDED INHALATION EVERY 4 HRS MEDICATION LIST REVIEWED AND RECONCILED WITH THE PATIENT PAST MEDICAL HISTORY UTI HYPOGLYCEMIA- DIET CONTROLED ACID REFLUX ASTHMA NECK PAIN ANXIETY MIGRAINE PIGMENTARY RETINAL DYSTROPHY DYSTHYMIC DISORDER IRRITABLE BOWEL SYNDROME HPV DYSLIPIDEMIA NICOTINE DEPENDENCE ACUTE SUPPURATIVE OTITIS MEDIA OF BOTH EARS WITHOUT SPONTANEOUS RUPTURE OF TYMPANIC MEMBRANES, RECURRENCE NOT SPECIFIED RIGHT MAXILLARY SINUSITIS ACUTE MAXILLARY SINUSITIS REACTIVE HYPOGYCEMIA CANCER HYPERTENSION OSTEOPOROSIS LOW BACK PAIN POST OPERATIVE NAUSEA AND VOMITING BERE BLACKBURN 12/06/2020 ALLERGIES REGLAN: FLIP OUT - SIDE EFFECTS LATEX: RASH/ITCHING - ALLERGY AMITRIPTYLINE HCL: HALLICUATIONS - SIDE EFFECTS PREDNISONE: SUICIDAL - SIDE EFFECTS IMITREX: VOMITING - SIDE EFFECTS COMPAZINE: FLIP-OUT - SIDE EFFECTS ZOFRAN: HEADACHE - SIDE EFFECTS CODEINE SULFATE: VOMITING - SIDE EFFECTS VICODIN: NAUSEA/VOMITING - SIDE EFFECTS ULTRACET: HEADACHE - SIDE EFFECTS NICOTINE PATCH: RASH, SWELLOWING - SIDE EFFECTS HEPATITIS VACCINATION: SICK - SIDE EFFECTS LATEX (FOR ALLERGY USE ONLY): SWELLOWING SURGICAL HISTORY LEEP 02/2007 [facility] BRAIN-ANEURYSM COIL/MESH 02/13/2019 TUBAL LIGATION 12/2016 SOCIAL HISTORY GENERAL: TOBACCO USE ARE YOU A:FORMER SMOKER HOW LONG HAS IT BEEN SINCE YOU LAST SMOKED?1-5 YEARS LATEX QUESTIONNAIRE LATEX ALLERGY : HAVE YOU EVER DEVELOPED ANY TYPE OF REACTION AFTER HANDLING LATEX PRODUCTS SUCH RUBBER GLOVES, CONDOMS, DIAPHRAGMS, BALLOONS, SOCKS, OR UNDERWEAR?YES - PLEASE INDICATE :RUBBER GLOVES, CONDOMS LATEX ALLERGY : HAVE YOU EVER DEVELOPED ANY TYPE OF REACTION DURING OR AFTER DENTAL APPOINTMENT, VAGINAL/RECTAL EXAMINATION, SURGICAL PROCEDURE, OR ANY OTHER EXPOSURE?YES - PLEASE INDICATE :DENTAL PROCEDURE LATEX RISK : HAVE YOU EVER HAD ANY DIFFICULTY BREATHING OR HIVES AFTER EATING OR HANDLING ANY FRUITS, OR VEGETABLES; SUCH KIWI, BANANAS, STONE FRUITS, OR CHESTNUTSNO LATEX RISK : DO YOU HAVE A PREVIOUS PERSONAL HISTORY OF MORE THAN NINE SURGERIES, SPINA BIFIDA, OR REPEATED CATHERIZATIONS? NO LATEX RISK : ARE YOU FREQUENTLY EXPOSED TO LATEX PRODUCTS IN YOUR OCCUPATION?NO DATE ASKED : 03/17/2021 ALCOHOL USE: YES ONCE A YEAR. ALCOHOL SCREENING POINTS: 1, INTERPRETATION: NEGATIVE. RECREATIONAL DRUG USE DRUG USE?NO CAFFEINE 1-2/DAY. SEXUAL HX HAD SEX IN THE LAST 12 MONTHS (VAGINAL, ORAL, OR ANAL)?: YES, WITH: MEN ONLY, HAVE YOU EVER HAD AN STD?: YES, OTHER?: YES, LMP:: 10/28/2012. 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 MARITAL STATUS: SINGLE. HOSPITALIZATION/MAJOR DIAGNOSTIC PROCEDURE UTI 2006 CHILD REVIEW OF SYSTEMS CONSTITUTIONAL: ANY RECENT FEVER NO . CHILLS NO . WEIGHT CHANGE OF UNKNOWN REASONS NO . GASTROENTEROLOGY: NEW UNEXPLAINABLE CHANGES IN BOWEL CONTROL NO . CONSTIPATION NO . GENITOURINARY: ANY NEW CHANGE IN BLADDER CONTROL? NO . NEUROLOGY: NEW ONSET DIZZINESS OR NEUROLOGICAL CHANGES NOT MENTIONED NO . NEW NUMBNESS OR PAIN PATTERNS NOT MENTIONED AND PERTINENT TO TODAY'S VISIT NO . CARDIOLOGY: NEW CHEST PRESSURE NO . PATIENT DENIES NO . RESPIRATORY: UNEXPLAINABLE COUGH NO . NEW SHORTNESS OF BREATH NO . VITAL SIGNS WT 141.2 LBS, HT 5'1", BMI 26.68 INDEX, BP 124/84 MM HG, HR 74 /MIN, RR 18 /MIN, TEMP 98.0 F, OXYGEN SAT % 92%, SAFE IN ENV? (Y/N) YES, NA INITIALS AW 1032T.QUIRINO ROMEO. EXAMINATION GENERAL EXAMINATION: GENERALAWAKE,ALERT ,PLEASANT . PSYCHAFFECT NORMAL . LUNGS:LUNG DONOHUE ARE CLEAR TO AUSCULTATION BILATERALLY. GOOD MOVEMENT OF AIR . HEART:S1, S2 IN A REGULAR RATE AND RHYTHM. NO SIGNIFICANT MURMURS, RUBS OR GALLOPS NOTED . ASSESSMENTS CHRONIC MIGRAINE WITHOUT AURA WITHOUT STATUS MIGRAINOSUS, NOT INTRACTABLE - G43.709 (PRIMARY) TREATMENT CHRONIC MIGRAINE WITHOUT AURA WITHOUT STATUS MIGRAINOSUS, NOT INTRACTABLE REFILL TIZANIDINE HCL TABLET, 2 MG, 1 TABLET NEEDED, ORALLY, TWICE A DAY IF NEEDED FOR SEVERE MIGRAINE, 30 DAYS, 30, REFILLS 2 DISPOSITION & COMMUNICATION FOLLOW UP 3 MONTHS (REASON: MED MANAGEMENT/HEADACHES/DOING WELL ON TIZANIDINE 2 MG AT AT BEDTIME) ELECTRONICALLY SIGNED BY CLINT CARDOZO ON 03/18/2021 AT 07:40 PM EDT DISCLAIMER : THIS IS A VISIT SUMMARY EXTRACTED FROM THE [email or web address] CHART. IT IS NOT A COPY OF THE [email or web address] PROGRESS NOTE. ASHLEIGH
== END ==
LOC: M PAIN 10:30
PROVIDERS: ATTEND Nurse Practitioner Family
DX: G43.709 Chronic migraine without aura, not intractable, without status migrainosus (principal); K21.9 Gastro-esophageal reflux disease without esophagitis; J45.909 Unspecified asthma, uncomplicated; F41.9 Anxiety disorder, unspecified; K58.9 Irritable bowel syndrome, unspecified; E78.5 Hyperlipidemia, unspecified; I10 Essential (primary) hypertension; M81.0 Age-related osteoporosis without current pathological fracture; Z87.891 Personal history of nicotine dependence; E16.2 Hypoglycemia, unspecified; Z79.82 Long term (current) use of aspirin; Z79.899 Other long term (current) drug therapy; Z79.1 Long term (current) use of non-steroidal anti-inflammatories (NSAID); Z88.5 Allergy status to narcotic agent; Z88.8 Allergy status to other drugs, medicaments and biological substances; Z91.040 Latex allergy status

== ENCOUNTER → 2021-06-16 | Outpatient (CLI) | payer MEDICARE, MEDICAID, BC | LOC: M PAIN 10:30 | PROVIDERS: ATTEND Anesthesiology | DX: M79.18 Myalgia, other site (principal); G43.709 Chronic migraine without aura, not intractable, without status migrainosus; K21.9 Gastro-esophageal reflux disease without esophagitis; Z86.59 Personal history of other mental and behavioral disorders; Z87.891 Personal history of nicotine dependence; Z88.5 Allergy status to narcotic agent; Z88.8 Allergy status to other drugs, medicaments and biological substances; Z91.040 Latex allergy status; Z79.82 Long term (current) use of aspirin; Z79.899 Other long term (current) drug therapy ==